=== PATIENT | male | born 1970 | race Hispanic/Latino ===

== ENCOUNTER 2024-09-07 08:55 | Outpatient (CLI) | payer OTHER ==
[2024-09-07] MEDS ORDERED: Iopamidol 370 76% 100 ML VIAL ONE (11:04)
== END 2024-09-07 08:56 | disposition home or self-care (01) ==
LOC: CT 08:55
PROVIDERS: ATTEND Surgery
DX: K43.9 Ventral hernia without obstruction or gangrene (principal); K76.0 Fatty (change of) liver, not elsewhere classified
CPT/HCPCS: 74177